=== PATIENT | female | born 1965 | race African-American/Black ===

== ENCOUNTER → 2018-05-30 | Outpatient (CLI) | payer OTHER ==
[2015-09-02 14:00] VITALS: BP 118/63
--- NOTE | 2018-05-30 08:52 | RAD ---
CT of the lumbar spine without contrast, 05/30/2018: HISTORY: Back pain, rule out osteomyelitis Noncontrast scans were obtained with multiplanar reconstructions produced. There is a mild lumbar scoliosis. The vertebral heights are well-maintained. No fracture or dislocation is evident. There is a surgical clamp related to the spinous processes at L5 and S1. A radiopaque disc spacer is present at the L5-S1 level. Associated artifacts degrade image quality at that level. There is considerable adjacent endplate irregularity and sclerosis along the inferior aspect of the L5 vertebral body and the superior aspect of S1. This disc space implant is positioned asymmetrically on the left with its posterior margin slightly encroaching upon the anterior aspect of the left neural foramen. There is obscuration of the normal perineural fat in the left L5-S1 neural foramen and left S1 lateral recess, which may be due to protruding disc material or scarring.There is mild posterior disc protrusion at the midline. There are moderate degenerative changes involving the facet joints bilaterally. No high-grade central spinal stenosis is seen. There is only minimal right foraminal narrowing at this level. At L1-2 there is moderate degenerative change involving the right facet joint. No significant posterior disc bulge or protrusion is seen. The central spinal canal is well maintained. There is mild right foraminal narrowing. At L2-3 there are mild degenerative changes involving the facet joints. No significant posterior disc bulge or protrusion is seen. The central spinal canal is well maintained. There is mild right foraminal narrowing. At L3-4 there is mild posterior annular bulging. There are mild degenerative changes involving the facet joints. The central spinal canal is well maintained. There is mild encroachment upon the medial aspect of the right foramen due to a facet spur. At L4-5 there are moderate degenerative changes involving the facet joints. There is mild broad-based posterior disc bulging. The central spinal canal is well maintained. There is mild inferior foraminal narrowing bilaterally. IMPRESSION: 1. Mild to moderate multilevel degenerative as described above. 2. Postsurgical changes at L5-S1 encroachment upon the left neural foramen and left lateral recess at S1 as described above. PQRS Compliance Statement: One or more of the following individualized dose reduction techniques were utilized for this examination: 1. Automated exposure control 2. Adjustment of the mA and/or kV according to patient size 3. Use of iterative reconstruction technique Electronically signed by: Jose Castaneda MD (05/30/2018 8:49 AM) [facility]
--- NOTE | 2018-05-30 14:52 | RAD ---
Examination: Whole-body bone scan HISTORY: History of chronic back pain COMPARISON: CT lumbar spine same day exam TECHNIQUE: 25.9 mCi of technetium 99m MDP was injected IV and whole body bone scan was performed. FINDINGS: Mild focal radiotracer uptake identified in the bilateral shoulder joints likely degeneration. There is faint focal uptake identified in the lower lumbar spine at the lumbosacral junction probably due to degeneration. Impression: 1. No evidence of focal radiotracer uptake to suggest osteoblastic skeletal metastasis or lesion. Electronically signed by: Evaristo Godinez MD (05/30/2018 2:49 PM) [place] [id number]
== END | disposition home or self-care (01) ==
LOC: NM 07:29
PROVIDERS: ATTEND Neurological Surgery
DX: M51.36 Other intervertebral disc degeneration, lumbar region (principal); M48.061 Spinal stenosis, lumbar region without neurogenic claudication; G89.29 Other chronic pain; I10 Essential (primary) hypertension; E11.9 Type 2 diabetes mellitus without complications; Z98.890 Other specified postprocedural states; Z86.69 Personal history of other diseases of the nervous system and sense organs
CPT/HCPCS: 72131; 78306; 96374; A9503

== ENCOUNTER → 2018-07-03 | Outpatient (CLI) | payer OTHER ==
[2015-09-02 14:00] VITALS: BP 118/63
--- NOTE | 2018-07-03 15:58 | KCIC ---
History: Postmenopausal osteoporosis. Black female, steroid use. Comparison: None. Findings: Bone Densitometry was performed with dual photon absorption of the lumbar spine and left hip. Lumbar Spine: Bone density is 1.099 g/cm2 for L1-L4. T-Score is 0.5. Z-score is 0.6. Mild levoconvex scoliosis of the lumbar spine is seen. Left hip: Bone density is 1.053 g/cm2. T-Score is 0.9. Z-score is 0.6. IMPRESSION: Bone mineral density of lumbar spine and left hip appears within normal limits. World Health definition of osteoporosis and osteopenia: Normal = T-Score at or above -1.0; osteopenia = T-score between -1.0 and -2.5; osteoporosis = T-score at or below -2.5 Electronically signed by: Rex Alaniz MD (07/03/2018 3:55 PM) [id number]
== END | disposition home or self-care (01) ==
LOC: KCIC DEXA 11:19
DX: M53.2X6 Spinal instabilities, lumbar region (principal); M81.0 Age-related osteoporosis without current pathological fracture; E11.9 Type 2 diabetes mellitus without complications; Z82.62 Family history of osteoporosis
CPT/HCPCS: 77080